=== PATIENT | female | born 1990 | race Caucasian/White ===

== ENCOUNTER 2017-09-30 17:00 | Emergency (ER) | payer OTHER ==
[~2017-09-30] VITALS: Ht 170.2 cm; Wt 89.3 kg
[~2017-09-30 17:00] MED LIST: HYDR-3419 PO
[2017-09-30 17:12] VITALS: TEMP 37; Ht 170.2 cm; Wt 89.3 kg
[2017-09-30 19:01] LABS: BASO % 0.2 %; BASO ABS # 0.02 K/uL (0-0.2); EOS % 0.4 %; EOS ABS # 0.03 K/uL (0-0.5); HEMATOCRIT 40.3 % (37-47); HEMOGLOBIN 13.9 g/dL (12.0-16.0); IG# 0.01 K/uL (0.00-0.02); LYMPH % 33.7 %; LYMPH ABS # 2.73 K/uL (1.2-3.4); MEAN CELL VOLUME 86.1 fL (80-100); MEAN CORPUSCULAR HEMOGLOBIN 29.7 pg (25-34); MEAN CORPUSCULAR HGB CONC 34.5 g/dl (32-36); MEAN PLATELET VOLUME 8.8 fL (7.4-10.4); MONO % 3.7 %; NEUT % 61.9 %; NEUT ABS # 5.01 K/uL (1.4-6.5); PLATELET COUNT 234 K/uL (130-400); RED CELL DISTRIBUTION WIDTH CV 12.3 % (11.5-14.5); RED CELL DISTRIBUTION WIDTH SD 38.9 fL (36.4-46.3)
[2017-09-30 19:10] LABS: PTT PATIENT 31.5 SECONDS (21.0-31.0)
[2017-09-30 19:28] LABS: CALCIUM 8.9 mg/dl (8.5-10.1); CREATININE 0.99 mg/dl (0.60-1.20); POTASSIUM 4.1 mmol/L (3.5-5.1)
[2017-09-30] MEDS ORDERED: SPIR100T PO (19:38)
[2017-09-30] MEDS ORDERED: GLC/500 PO (19:38)
[2017-09-30] MEDS ORDERED: BCPILLS PO (19:38)
[2017-09-30] MEDS ORDERED: MULT-506 PO (19:38)
--- NOTE | 2017-09-30 19:52 | DIAGNOSTIC IMAGING REPORT ---
L VENOUS DOPP LOWER EXT UNILAT CLINICAL HISTORY: 27 years-old Female presenting with left leg eval for dvt. TECHNIQUE: Real-time grayscale and color and spectral Doppler ultrasound imaging of the veins of the left lower extremity was performed. Compression and augmentation were also utilized. COMPARISON: None. FINDINGS: Left: Common femoral vein: Patent. Greater saphenous vein: Patent. Deep femoral vein: Patent. Femoral vein: Patent. Popliteal vein: Patent. Calf veins: Patent. Other: None. IMPRESSION: No evidence of deep venous thrombosis. Electronically signed by: Paddy Bullock M.D. 09/30/2017 7:51 PM Dictated Date/Time: 09/30/2017 7:51 PM
--- NOTE | 2017-09-30 20:10 | EMERGENCY ROOM VISIT NOTE ---
History Report prepared by Chandler: Briana Perez Under the Supervision of: Dr. Caleb Howard M.D. First contact with patient: 18:04 Chief Complaint: LEG PAIN,LEG INJURY Stated Complaint: PAIN IN GROIN/HIP ISSUES History of Present Illness The patient is a 27 year old female who presents to the Emergency Room with complaints of persistent left leg pain starting 2 weeks ago. Her thigh first began feeling sensitive and sore 2 weeks ago. She thought the pain might have been from exercise. Since then, the pain has moved up her thigh into her groin and hip. The pain is now a burning sensation. The pain does not worsen with movement. She reports that her hip pops which is normal for her. She actually intentionally tries to pop her hip. She has sensitive calves and notes a family history of varicose veins. She denies any increased calf pain. She denies any fall or injury. She denies any lower back pain, fever, vomiting, chest pain, SOB, leg swelling, or change in color of leg. She recently traveled to [place] by air. She denies any chance of as she uses protection and is on control. She has been on control for the past 12 years. She has a history of PCOS and is insulin resistant. She is on spironolactone for PCOS and acne. Source of History: patient Onset: 2 weeks ago Position: leg (left) Quality: burning Timing: other (persistent) Modifying Factors (Worsening): movement Associated Symptoms: No fevers, No chest pain, No SOB, No vomiting, No back pain Note: Pt reports left groin and hip pain. Pt denies calf pain, leg swelling, change in leg color. Review of Systems See HPI for pertinent positives & negatives. A total of 10 systems reviewed and were otherwise negative. Past Medical & Surgical Medical Problems: (1) PCOS (polycystic ovarian syndrome) Family History Diabetes mellitus Hypertension Social History Smoking Status: Never Smoker Occupation Status: employed Current/Historical Medications Scheduled Control Pills ( Control Pills), 1 TAB PO DAILY Metformin Hcl (Glucophage), 500 MG PO TID Multivitamin (Multivitamin), 1 TAB PO DAILY Spironolactone (Aldactone), 100 MG PO DAILY Allergies Coded Allergies: Sulfamethoxazole w/Trimethoprim (Verified Allergy, Intermediate, HIVES, ) Physical Exam Vital Signs Date Time Temp Pulse Resp B/P (MAP) Pulse Ox O2 Delivery O2 Flow Rate FiO2 09/30/17 17:12 37.0 69 17 150/93 98 Room Air Physical Exam Constitutional: Vital signs reviewed. Eyes: Pupils are equal round reactive to light. Conjunctiva are noninjected. ENT: Pharynx is clear without erythema or exudate. Mucous membranes are moist. Neck supple without meningeal signs. Respiratory: Clear to auscultation bilaterally. Breath sounds are equal bilaterally. Cardiovascular: Regular rate and rhythm. No rubs or gallops. GI: Soft, nondistended and nontender. Bowel sounds are present. Musculoskeletal: No peripheral edema. No lower extremity tenderness. No midline tenderness to the lumbosacral spine. No hip tenderness. No erythema or increased warmth to the left leg. Normal distal pulses. Integumentary: No cyanosis. Neurological: The patient is awake and alert. No focal deficits. Psychiatric: Normal affect. Medical Decision & Procedures ER Provider Diagnostic Interpretation: Radiology results as stated below per my review and the radiologist's interpretation: L VENOUS DOPP LOWER EXT UNILAT CLINICAL HISTORY: 27 years-old Female presenting with left leg eval for dvt. TECHNIQUE: Real-time grayscale and color and spectral Doppler ultrasound imaging of the veins of the left lower extremity was performed. Compression and augmentation were also utilized. COMPARISON: None. FINDINGS: Left: Common femoral vein: Patent. Greater saphenous vein: Patent. Deep femoral vein: Patent. Femoral vein: Patent. Popliteal vein: Patent. Calf veins: Patent. Other: None. IMPRESSION: No evidence of deep venous thrombosis. Electronically signed by: Paddy Bullock M.D. 09/30/2017 7:51 PM Dictated Date/Time: 09/30/2017 7:51 PM Laboratory Results 09/30/17 18:35 Red Blood Count 4.68, Mean Corpuscular Volume 86.1, Mean Corpuscular Hemoglobin 29.7, Mean Corpuscular Hemoglobin Concent 34.5, Mean Platelet Volume 8.8, Neutrophils (%) (Auto) 61.9, Lymphocytes (%) (Auto) 33.7, Monocytes (%) (Auto) 3.7, Eosinophils (%) (Auto) 0.4, Basophils (%) (Auto) 0.2, Neutrophils # (Auto) 5.01, Lymphocytes # (Auto) 2.73, Monocytes # (Auto) 0.30, Eosinophils # (Auto) 0.03, Basophils # (Auto) 0.02 09/30/17 18:35 Test 09/30/17 18:35 White Blood Count 8.10 K/uL (4.8-10.8) Red Blood Count 4.68 M/uL (4.2-5.4) Hemoglobin 13.9 g/dL (12.0-16.0) Hematocrit 40.3 % (37-47) Mean Corpuscular Volume 86.1 fL (80-100) Mean Corpuscular Hemoglobin 29.7 pg (25-34) Mean Corpuscular Hemoglobin Concent 34.5 g/dl (32-36) Platelet Count 234 K/uL (130-400) Mean Platelet Volume 8.8 fL (7.4-10.4) Neutrophils (%) (Auto) 61.9 % Lymphocytes (%) (Auto) 33.7 % Monocytes (%) (Auto) 3.7 % Eosinophils (%) (Auto) 0.4 % Basophils (%) (Auto) 0.2 % Neutrophils # (Auto) 5.01 K/uL (1.4-6.5) Lymphocytes # (Auto) 2.73 K/uL (1.2-3.4) Monocytes # (Auto) 0.30 K/uL (0.11-0.59) Eosinophils # (Auto) 0.03 K/uL (0-0.5) Basophils # (Auto) 0.02 K/uL (0-0.2) RDW Standard Deviation 38.9 fL (36.4-46.3) RDW Coefficient of Variation 12.3 % (11.5-14.5) Immature Granulocyte % (Auto) 0.1 % Immature Granulocyte # (Auto) 0.01 K/uL (0.00-0.02) Prothrombin Time 10.0 SECONDS (9.0-12.0) Prothromb Time International Ratio 1.0 (0.9-1.1) Activated Partial Thromboplast Time 31.5 SECONDS (21.0-31.0) Partial Thromboplastin Ratio 1.2 Anion Gap 4.0 mmol/L (3-11) Est Creatinine Clear Calc Drug Dose 99.7 ml/min Estimated GFR () 91.8 Estimated GFR (Non- 79.2 BUN/Creatinine Ratio 17.3 (10-20) Calcium Level 8.9 mg/dl (8.5-10.1) Laboratory results as reviewed by me. ED Course 1807: The patient was evaluated in room B7. A complete history and physical exam was performed. 1952: Upon reevaluation, the patient was resting comfortably. I discussed robetr's findings with her. She verbalized agreement of the treatment plan. She was discharged home. Medical Decision This is a 27-year-old female who presents with leg pain. Differential diagnosis includes DVT, strain, superficial thrombophlebitis, radicular pain. I did perform a limited focused review of portions of the patient's old chart on the electronic medical record. The patient has had no recent pertinent visits to this hospital. I did evaluate the patient as noted above. She is presenting with left thigh pain. She has an unremarkable exam. There is no evidence of infection. She has full range of motion of the hip. She has no bony tenderness to the pelvis or hip. She has no bony tenderness to the lumbar spine. She has no signs of inguinal hernia. IV access was established. I did order and review the patient 's blood work as noted in the electronic medical record. Her labs are unremarkable. Her white blood cell count is not elevated. I did order a Doppler ultrasound of the left lower extremity. I did review the images myself as well as the radiology report as described above. There is no evidence of DVT. I did discuss the test results with the patient. I did recommend anti- inflammatories for her pain and close follow up with her doctor as the cause of her pain is unclear at this time. She was given return instructions as outlined below and discharged in good condition. Medication Reconcilliation Current Medication List: was personally reviewed by me Blood Pressure Screening Patient's blood pressure: Elevated blood pressure Blood pressure disposition: Referred to PCP Impression Primary Impression: Leg pain, left Scribe Attestation The scribe's documentation has been prepared under my direct and personally reviewed by me in its entirety. I confirm that the note above accurately reflects all work, treatment, procedures, and medical decision making performed by me. Departure Information Dispostion Home / Self-Care Referrals No Doctor, Assigned (PCP) Forms HOME CARE DOCUMENTATION FORM, IMPORTANT VISIT INFORMATION Patient Instructions My [facility] Additional Instructions You have been examined and treated today on an emergency basis only. This is not a substitute for, or an effort to provide, complete comprehensive medical care. It is impossible to recognize and treat all injuries or illnesses in a single emergency department visit. It is therefore important that you follow up closely with your physician. Call as soon as possible for an appointment. Return for worsening symptoms or if you develop fever, vomiting, discoloration of the leg, swelling to the leg, chest pain, shortness of breath or any other concerning symptoms.
[2017-09-30 20:34] VITALS: BP 132/83; PULSE 70; O2SAT 100
== END 2017-09-30 20:34 | disposition home or self-care (01) ==
LOC: C.EDB 17:01
DX: M79.605 Pain in left leg (principal); L70.9 Acne, unspecified; E28.2 Polycystic ovarian syndrome; Z83.3 Family history of diabetes mellitus; Z82.49 Family history of ischemic heart disease and other diseases of the circulatory system; Z79.899 Other long term (current) drug therapy

== ENCOUNTER → 2017-12-10 | Outpatient (CLI) | payer OTHER ==
[~2017-12-10] MED LIST changes: +BCPILLS PO; +GLC/500 PO; -HYDR-3419 PO; +MULT-506 PO; +SPIR100T PO
== END | disposition home or self-care (01) ==
LOC: C.PAPS 14:08
PROVIDERS: ATTEND Obstetrics & Gynecology
DX: Z12.4 Encounter for screening for malignant neoplasm of cervix (principal)

== ENCOUNTER → 2017-12-10 | Outpatient (CLI) | payer OTHER ==
[2017-12-10 12:14] LABS: HEMOGLOBIN 14.5 g/dL (12.0-16.0); MEAN CELL VOLUME 86.2 fL (80-100); MEAN CORPUSCULAR HEMOGLOBIN 29.1 pg (25-34); MEAN CORPUSCULAR HGB CONC 33.7 g/dl (32-36); MEAN PLATELET VOLUME 9.7 fL (7.4-10.4); PLATELET COUNT 253 K/uL (130-400); RED CELL DISTRIBUTION WIDTH CV 12.2 % (11.5-14.5); RED CELL DISTRIBUTION WIDTH SD 38.9 fL (36.4-46.3); WHITE BLOOD COUNT 4.97 K/uL (4.8-10.8)
[2017-12-10 12:50] LABS: ALBUMIN 3.7 gm/dl (3.4-5.0); ALT/SGPT 20 U/L (12-78); AST/SGOT 22 U/L (15-37); BLOOD UREA NITROGEN 20 mg/dl (7-18); CALCIUM 8.8 mg/dl (8.5-10.1); CARBON DIOXIDE 27 mmol/L (21-32); CHOLESTEROL 155 mg/dl (0-200); CREATININE 1.04 mg/dl (0.60-1.20); GLUCOSE 84 mg/dl (70-99); POTASSIUM 4.4 mmol/L (3.5-5.1); SODIUM 135 mmol/L (136-145)
[2017-12-10 13:01] LABS: ALKALINE PHOSPHATASE 64 U/L (45-117); LDL CHOLESTEROL CALCULATED 65 mg/dl; TOTAL PROTEIN 7.6 gm/dl (6.4-8.2)
== END | disposition home or self-care (01) ==
LOC: C.LAB1850 09:54
PROVIDERS: ATTEND Nurse Practitioner Adult Health
DX: E28.2 Polycystic ovarian syndrome (principal); Z82.49 Family history of ischemic heart disease and other diseases of the circulatory system; E16.1 Other hypoglycemia; R73.02 Impaired glucose tolerance (oral); Z13.220 Encounter for screening for lipoid disorders; Z83.3 Family history of diabetes mellitus; E66.9 Obesity, unspecified; R53.83 Other fatigue; Z13.1 Encounter for screening for diabetes mellitus; N92.6 Irregular menstruation, unspecified

== ENCOUNTER → 2018-01-25 | Outpatient (CLI) | payer OTHER ==
[2018-01-25 16:20] LABS: BLOOD UREA NITROGEN 15 mg/dl (7-18); CALCIUM 9.4 mg/dl (8.5-10.1); CARBON DIOXIDE 28 mmol/L (21-32); CREATININE 1.12 mg/dl (0.60-1.20); GLUCOSE 83 mg/dl (70-99); POTASSIUM 4.4 mmol/L (3.5-5.1); SODIUM 137 mmol/L (136-145)
== END | disposition home or self-care (01) ==
LOC: C.LAB1850 15:32
PROVIDERS: ATTEND Nurse Practitioner Adult Health
DX: E87.1 Hypo-osmolality and hyponatremia (principal)

== ENCOUNTER → 2018-04-21 | Outpatient (CLI) | payer OTHER ==
[2018-04-21 14:35] LABS: BASO % 0.8 %; BASO ABS # 0.04 K/uL (0-0.2); EOS ABS # 0.05 K/uL (0-0.5); HEMATOCRIT 42.4 % (37-47); HEMOGLOBIN 14.4 g/dL (12.0-16.0); LYMPH % 40.6 %; LYMPH ABS # 2.03 K/uL (1.2-3.4); MEAN CELL VOLUME 86.5 fL (80-100); MEAN CORPUSCULAR HEMOGLOBIN 29.4 pg (25-34); MEAN PLATELET VOLUME 9.9 fL (7.4-10.4); MONO % 4.8 %; MONO ABS # 0.24 K/uL (0.11-0.59); NEUT % 52.8 %; NEUT ABS # 2.64 K/uL (1.4-6.5); PLATELET COUNT 267 K/uL (130-400); RED CELL DISTRIBUTION WIDTH CV 12.7 % (11.5-14.5); RED CELL DISTRIBUTION WIDTH SD 40.2 fL (36.4-46.3)
[2018-04-21 14:59] LABS: BLOOD UREA NITROGEN 16 mg/dl (7-18); CALCIUM 8.8 mg/dl (8.5-10.1); CARBON DIOXIDE 24 mmol/L (21-32); CREATININE 1.25 mg/dl (0.60-1.20); GLUCOSE 86 mg/dl (70-99); POTASSIUM 4.7 mmol/L (3.5-5.1); SODIUM 137 mmol/L (136-145); TRANSFERRIN 365 mg/dl (200-360)
== END | disposition home or self-care (01) ==
LOC: C.LAB1850 11:18
PROVIDERS: ATTEND Nurse Practitioner Adult Health
DX: G25.81 Restless legs syndrome (principal); G51.4 Facial myokymia; R53.83 Other fatigue; R25.3 Fasciculation

== ENCOUNTER → 2018-04-27 | Outpatient (CLI) | payer OTHER ==
[2018-04-27 12:13] LABS: BLOOD UREA NITROGEN 14 mg/dl (7-18); CALCIUM 8.5 mg/dl (8.5-10.1); CARBON DIOXIDE 26 mmol/L (21-32); CREATININE 1.16 mg/dl (0.60-1.20); GLUCOSE 78 mg/dl (70-99); SODIUM 138 mmol/L (136-145)
== END | disposition home or self-care (01) ==
LOC: C.LAB1850 10:26
PROVIDERS: ATTEND Nurse Practitioner Adult Health
DX: E28.2 Polycystic ovarian syndrome (principal); G25.81 Restless legs syndrome; R79.89 Other specified abnormal findings of blood chemistry; R39.9 Unspecified symptoms and signs involving the genitourinary system